=== PATIENT | female | born 1995 | race Two or more races ===

== ENCOUNTER 2017-11-27 22:55 | Emergency (ER) | payer OTHER ==
[~2017-11-27] VITALS: Ht 167.6 cm; Wt 90.7 kg
[2017-11-28] MEDS ORDERED: XOPENEX0.63 MG/3 IH (03:07)
[2017-11-28] MEDS ORDERED: ZYNCOF 20-400120 ML PO (03:07)
== END 2017-11-28 03:19 | disposition home or self-care (01) ==
LOC: ER 22:55
DX: R00.0 Tachycardia, unspecified (principal); R50.9 Fever, unspecified